=== PATIENT | male | born 1965 | race African-American/Black ===

== ENCOUNTER 2020-12-02 08:43 | Emergency (ER) | payer MEDICAID ==
[~2020-12-02] VITALS: Ht 172.7 cm; Wt 73.0 kg
[2020-12-02] MEDS ORDERED: FUROSEMIDE 40MG/4ML VIAL IV ONE (09:15)
[2020-12-02] MEDS: ALBUTEROL (0.083%) 2.5MG/3ML NEB HHN STA ×2 (09:20→09:40)
[2020-12-02 09:28] LABS: CHLORIDE 109 mEq/L (98-107)
[2020-12-02] MEDS ORDERED: IPRATROPIUM BROMIDE (0.02%) 0.5MG/2.5ML NEB HHN STA (09:29)
[2020-12-02] MEDS ORDERED: ONDANSETRON HCL 4MG/2ML INJ IV ONE (09:30)
[2020-12-02 09:36] LABS: ETHANOL BLOOD < 10 mg/dL
[2020-12-02 09:48] LABS: BASOPHILS % 0.9 % (0.0-2.0); EOSINOPHILS % 1.5 % (0.0-5.0); HEMATOCRIT. 43.6 % (42.0-52.0); HEMOGLOBIN. 15.2 g/dL (14.0-18.0); LYMPHOCYTES % 29.8 % (20.0-50.0); MEAN CORPUSCULAR HEMOGLOBIN 34.3 pg (28.0-32.0); MEAN PLATELET VOLUME 7.9 fl (7.4-10.4); MONOCYTES % 7.4 % (2.0-8.0); NEUTROPHILS % 60.4 % (40.0-76.0); PLATELET 240 x1000/uL (130-400); RED BLOOD CELL COUNT 4.44 mill/uL (4.7-6.1); RED CELL DISTRIBUTION WIDTH 13.9 % (11.6-14.6)
[2020-12-02 10:54] LABS: *BARBITURATES SCREEN URINE NEGATIVE (NEGATIVE); CANNABINOID URINE SCREEN PRESUMTIVE POSITIVE (NEGATIVE); METHADONE URINE SCREEN NEGATIVE (NEGATIVE); OPIATES URINE SCREEN NEGATIVE (NEGATIVE); PHENCYCLIDINE URINE SCREEN NEGATIVE (NEGATIVE)
[2020-12-02 10:55] LABS: *AMPHETAMINES SCREEN URINE NEGATIVE (NEGATIVE); *BENZODIAZEPINES SCREEN URINE NEGATIVE (NEGATIVE); *COCAINE SCREEN URINE NEGATIVE (NEGATIVE)
[2020-12-02] MEDS ORDERED: MAGNESIUM/ALUMINUM HYDROXIDE/SIMETHICONE 30ML UDC PO PRN (13:15)
[2020-12-02] MEDS ORDERED: NITROGLYCERIN 0.4MG TABLET SL SL PRN (13:15)
[2020-12-02] MEDS ORDERED: IPRATROPIUM/ALBUTEROL 0.5-3(2.5)MG/3ML NEB NEB PRN (13:15)
[2020-12-02] MEDS ORDERED: DOCUSATE SODIUM 100MG CAPSULE PO PRN (13:15)
[2020-12-02] MEDS ORDERED: ZOLPIDEM TARTRATE 5MG TABLET PO PRN (13:15)
[2020-12-02] MEDS ORDERED: GUAIFENESIN 200MG/10ML SUGAR FREE UDC PO PRN (13:15)
[2020-12-02] MEDS ORDERED: ACETAMINOPHEN 325MG TABLET PO PRN ×2 (13:15)
[2020-12-02] MEDS ORDERED: CLONIDINE 0.1MG TABLET PO PRN (13:15)
[2020-12-02] MEDS ORDERED: ONDANSETRON HCL 4MG/2ML INJ IV PRN (13:15)
[2020-12-02] MEDS ORDERED: KETOROLAC 15MG/ML VIAL IV PRN (13:15)
[2020-12-02] MEDS ORDERED: ENOXAPARIN 40MG/0.4ML SYR SUBCUT SCH (14:00)
[2020-12-02 14:28] LABS: FOLIC ACID (FOLATE) SERUM 8.9 ng/mL (>5.38)
[2020-12-02 14:54] LABS: CREATINE KINASE MB FRACTION 3.7 ng/mL (0.5-3.6)
[2020-12-02] MEDS ORDERED: CARVEDILOL 3.125 MG TABLET PO SCH (18:00)
[2020-12-02 19:04] VITALS: BP 122/82
[2020-12-02] MEDS ORDERED: SPIRONOLACTONE 25MG TABLET PO SCH (21:00)
[2020-12-02] MEDS ORDERED: FAMOTIDINE 20MG TABLET PO SCH (21:00)
[2020-12-02] MEDS ORDERED: FUROSEMIDE 40MG/4ML VIAL IVP SCH (21:00)
[2020-12-03] MEDS ORDERED: ASPIRIN 325MG EC TABLET PO SCH (09:00)
[2020-12-03] MEDS ORDERED: ENOXAPARIN 40MG/0.4ML SYR SUBCUT SCH (09:00)
== END 2020-12-02 19:51 | disposition left against medical advice (07) ==
LOC: ER 08:43 → CANRESERV 19:36 → ENRESERV 19:36 → ER 19:51 → CANBEDREQ 22:43
DX: I11.0 Hypertensive heart disease with heart failure (principal); I50.9 Heart failure, unspecified; R11.10 Vomiting, unspecified
CPT/HCPCS: 36415; 71045; 80053; 80061; 80305; 80320; 82550; 82553; 82607; 82746; 83036; 83540; 83550; 83880; 84484; 85025; 93005; 93970; 94640; 96372; 96374; 96375; 99285; J1650; J1940; J2405; Z7610; G0480